=== PATIENT | male | born 1940 | race Caucasian/White ===

== ENCOUNTER 2018-05-27 12:03 | Outpatient (CLI) | payer MEDICARE, OTHER, SELFPAY | END 2018-05-27 12:23 | PROVIDERS: PCP Nurse Practitioner; Visit Provider Internal Medicine Interventional Cardiology | DX: I48.92 Unspecified atrial flutter (principal); I49.9 Cardiac arrhythmia, unspecified; G47.33 Obstructive sleep apnea (adult) (pediatric); I10 Essential (primary) hypertension | CPT/HCPCS: 99213 ==

== ENCOUNTER 2018-11-18 09:23 | Outpatient (CLI) | payer MEDICARE, OTHER, SELFPAY | END 2018-11-18 09:43 | PROVIDERS: PCP Nurse Practitioner; Visit Provider Internal Medicine Interventional Cardiology | DX: I48.0 Paroxysmal atrial fibrillation (principal); G47.30 Sleep apnea, unspecified; I10 Essential (primary) hypertension | CPT/HCPCS: 93005; 93010; 99213 ==

== ENCOUNTER 2018-12-19 12:22 | Outpatient (CLI) | payer MEDICARE, OTHER, SELFPAY ==
[2018-12-19 14:21] LABS: ALT 35 U/L (12-78); AST 32 U/L (15-37); Albumin 3.7 g/dL (3.4-5.0); Alkaline Phosphatase 49 U/L (46-116); Anion Gap 7.9 mmol/L (3-11); BUN 15 mg/dL (7-18); Bilirubin, Total 0.7 mg/dL (0.2-1.0); CO2 28.1 mmol/L (21.0-32.0); CREATININE 0.94 mg/dL (0.70-1.30); Calcium 8.9 mg/dL (8.5-10.1); Chloride 105 mmol/L (98-107); Glucose 89 mg/dL (70-100); Potassium 4.2 mmol/L (3.5-5.1); Sodium 141 mmol/L (136-145); Total Protein 6.4 g/dL (6.4-8.2)
== END 2018-12-19 12:42 ==
PROVIDERS: PCP Nurse Practitioner; Visit Provider Nurse Practitioner
DX: G47.33 Obstructive sleep apnea (adult) (pediatric) (principal); I10 Essential (primary) hypertension; I48.91 Unspecified atrial fibrillation; M19.90 Unspecified osteoarthritis, unspecified site
CPT/HCPCS: 36415; 80053

== ENCOUNTER → 2019-05-26 12:40 | Outpatient (BNVA) | payer MEDICARE, OTHER, SELFPAY | PROVIDERS: PCP Nurse Practitioner; Referring Provider Nurse Practitioner; Visit Provider Internal Medicine Cardiovascular Disease | DX: I48.0 Paroxysmal atrial fibrillation (principal); G47.33 Obstructive sleep apnea (adult) (pediatric); Z79.01 Long term (current) use of anticoagulants; I10 Essential (primary) hypertension | CPT/HCPCS: 99204; 99215 ==

== ENCOUNTER 2019-06-24 08:17 | Outpatient (CLI) | payer MEDICARE, OTHER, SELFPAY ==
[2019-06-24 08:54] LABS: HCT 43.3 % (40.0-50.0); HGB 14.6 g/dL (13.5-17.5); Mean Corp. HGB Concentration 33.7 g/dL (32.0-36.0); Mean Corpuscular Hemoglobin 31.7 pg (27.0-33.0); Mean Corpuscular Volume 94.1 fL (80-95); Mean Platelet Volume 10.3 fL (8.0-11.0); Platelet Count 146 x1000/uL (130-400); RBC Distribution Width 12.5 % (11.8-14.1); White Blood Cell Count 4.97 k/cumm (4.4-10.8)
[2019-06-24 09:42] LABS: ALT 27 U/L (16-63); AST 24 U/L (15-37); Albumin 3.8 g/dL (3.4-5.0); Alkaline Phosphatase 53 U/L (46-116); BUN 14 mg/dL (7-18); Bilirubin, Total 0.8 mg/dL (0.2-1.0); CREATININE 0.95 mg/dL (0.70-1.30); Calcium 8.8 mg/dL (8.5-10.1); Chloride 107 mmol/L (98-107); Cholesterol 117 mg/dL (50-200); Glucose 91 mg/dL (70-100); HDL Cholesterol 50 mg/dL (40-60); Potassium 4.1 mmol/L (3.5-5.1); Sodium 144 mmol/L (136-145); Total Protein 6.6 g/dL (6.4-8.2)
[2019-06-24 09:46] LABS: Triglyceride < 25 mg/dL (30-150)
[2019-06-24 10:13] LABS: LDL CHOLESTEROL 64 mg/dL (<100)
== END 2019-06-24 08:37 ==
PROVIDERS: PCP Nurse Practitioner; Visit Provider Nurse Practitioner
DX: I10 Essential (primary) hypertension (principal); I48.91 Unspecified atrial fibrillation; E78.9 Disorder of lipoprotein metabolism, unspecified; J30.9 Allergic rhinitis, unspecified
CPT/HCPCS: 36415; 80053; 80061; 83721; 85027

== ENCOUNTER → 2020-01-19 14:03 | Outpatient (BNVA) | payer MEDICARE, OTHER, SELFPAY | PROVIDERS: PCP Nurse Practitioner; Referring Provider Nurse Practitioner; Visit Provider Internal Medicine Cardiovascular Disease | DX: I48.91 Unspecified atrial fibrillation (principal); I48.0 Paroxysmal atrial fibrillation; G47.33 Obstructive sleep apnea (adult) (pediatric); I34.0 Nonrheumatic mitral (valve) insufficiency | CPT/HCPCS: 99214 ==

== ENCOUNTER 2020-02-11 01:54 | Outpatient (CLI) | payer MEDICARE, OTHER, SELFPAY ==
--- NOTE | 2020-02-11 07:45 | DI.US_ITS ---
APPROVED REPORT EXAM: Comprehensive 2D, Doppler, and color-flow Echocardiogram Patient Location: Out-Patient Cd Reactor Operator: Estrella Charles RDCS (AE) Indications: Murmur, Atrial Fibrillation Other Information Study Quality: Poor. Technically limited study due to body habitus. Conclusion Normal left ventricular wall thickness and chamber size. Estimated ejection fraction is 55%. There are no segmental wall motion abnormalities. Stage I diastolic dysfunction The left atrium is mildly dilated. The right atrium is top normal size The right ventricle is normal in size and systolic function The aortic valve is mildly sclerotic, not well visualized, with mild aortic regurgitation Mildly thickened mitral leaflets. There is mild mitral regurgitation The tricuspid valve is structurally normal. Trace tricuspid regurgitation The pulmonic valve is not well visualized Wall motion Left Ventricle The left ventricle is normal size. The left ventricular systolic function is normal. The left ventric ular ejection fraction is within the normal range. There is normal left ventricular wall thickness. T here is normal LV segmental wall motion. Transmitral Doppler flow pattern suggests impaired LV relaxa tion. LVEF is 55%. Right Ventricle The right ventricle is normal size. The right ventricular systolic function is normal. Atria Left atrium is mildly dilated. Right atrium is borderline dilated. Aortic Valve Aortic valve is not well visualized. There is mild sclerosis There is no aortic valvular stenosis. Tr jaimee mild aortic regurgitation. Mitral Valve Mitral leaflets mildly thickened No evidence of mitral valve stenosis. Mild mitral regurgitation. Tricuspid Valve The tricuspid valve is normal in structure. There is no tricuspid valve stenosis. Trace tricuspid reg urgitation. Pulmonic Valve Pulmonic valve is not well visualized. There is no pulmonic valvular stenosis. There is no pulmonic v alvular regurgitation. Great Vessels The aortic root is normal in size. Ascending aorta is not well visualized. Due to poor image quality, the IVC could not be assessed. 2D Dimensions IVSD d PLAX 0.87 cm M: 0.6-1.2 LV Vol A2C d MOD 139.5 mL LVPW d PLAX 0.87 cm M: 0.6 - 1.2 LV Vol A4C d MOD 107.6 mL LVID d PLAX 5.19 cm M: 4.2 - 5.8 LA vol/ BSA A2C s A-L 41.9 mL/m2 LVDs 3.65 cm M: 2.5 - 4.0 LA vol/ BSA A4C s A-L 39.8 mL/m2 Ao Root d 2.66 cm M: 3.1 - 3.7 LA Vol/ BSA Biplane s A-L 41.1 mL/m2 RA Area A4C 19.50 cm2 LA Area A4C s MOD 22.09 cm2 RA Vol/ BSA A4C s A-L 36.5 mL/m2 LA Area A2C s MOD 22.86 cm2 LV EF Teichholz 56.4 % LV EF A4C MOD 50.2 % LVEF (Hair's) 49.17 % M: 52 - 72 LV EF A2C MOD 53.9 % LV Volume 95.54 mL M: 62 - 150 LV EF Biplane MOD 49.2 % LV Volume Index 53.67 mL/m2 M: 34 - 74 SV 60.14 mL LV Vol Biplane MOD 122.3 mL SV Index 33.81 mL/m2 FS 29.65 % M-Mode TAPSE 3.39 cm (M/F) >1.7 LV Diastology MV E' medial 0.064 (>0.07 m/s) E/A Ratio 0.9 LV E/e MED 10.05 (<14) MV E Vmax 0.64 (0.4-1.3 m/s) MV E' lateral 0.065 (>0.1 m/s) MV A Vmax 0.70 (0.4-1.3 m/s) LV E/e LAT 9.85 (<14) MV E/A Ratio 0.89 MV E/E' medial 10.08 MV E/E' lateral 9.89 Aortic Valve LVOT Area 3.43 cm2 AoV Area Vmax 2.01 cm2 LVOT Vmax 0.98 m/s AoV Area/ BSA (Vmax) 1.13 cm2/m2 LVOT Mean Dave. 0.56 m/s OSMAR Mean Dave. 1.72 cm2 LVOT Peak Grad 3.8 mmHg OSMAR Mean Dave. Index 0.97 cm2/m2 LVOT Mean Grad 1.6 mmHg AR DT 3117 msec LVOT VTI 0.243 m AR PHT 904 msec LVOT Diam s 2.05 cm AoV Vmax 1.67 m/s Velocity Ratio 0.58 AoV Mean Dave. 1.13 m/s AoV Peak Grad 11.1 mmHg LVOT SV 83.39 mL AoV Mean Grad 5.7 mmHg AoV VTI 0.377 m AoV Area VTI 2.21 cm2 AoV Area/ BSA (VTI) 1.24 cm/m2 Mitral Valve MV DT 253 (160-240 msec) MR Vmax 5.87 m/s MV PHT 73 msec MR VTI 2.450 m MV Area PHT 3.00 cm2 MR Peak Grad 137.7 mmHg MR Mean Grad 90.1 mmHg MR PISA Radius 0.51 cm MR EROA 0.10 cm2 MR Aliasing Velocity 0.35 m/s MR PISA 1.62 cm2 Pulmonary Valve PV Vmax 0.91 (0.5-1.5 m/s) RVOT Peak Gr. 1.55 mmHg PV Peak Grad 3.3 mmHg RVOT Mean Gr. 1.00 mmHg PV Mean Grad 2.4 mmHg RVOT VTI 0.168 m PV VTI 0.218 m RVOT Vmax 0.62 m/s Tricuspid Valve TR Peak Grad 25.8 mmHg TR Vmax 2.54 m/s
== END 2020-02-11 02:14 ==
PROVIDERS: PCP Nurse Practitioner; Visit Provider Internal Medicine Cardiovascular Disease
DX: I48.91 Unspecified atrial fibrillation (principal); R01.1 Cardiac murmur, unspecified; I35.1 Nonrheumatic aortic (valve) insufficiency; I34.0 Nonrheumatic mitral (valve) insufficiency; I10 Essential (primary) hypertension
CPT/HCPCS: 93306

== ENCOUNTER → 2020-08-12 13:59 | Outpatient (BNVA) | payer MEDICARE, OTHER, SELFPAY | PROVIDERS: PCP Nurse Practitioner; Referring Provider Nurse Practitioner; Visit Provider Internal Medicine Cardiovascular Disease | DX: I48.91 Unspecified atrial fibrillation (principal); G47.33 Obstructive sleep apnea (adult) (pediatric); Z79.01 Long term (current) use of anticoagulants; I34.0 Nonrheumatic mitral (valve) insufficiency | CPT/HCPCS: 99213 ==

== ENCOUNTER → 2021-04-26 10:47 | Outpatient (BNVA) | payer MEDICARE, OTHER, SELFPAY | PROVIDERS: PCP Nurse Practitioner; Referring Provider Nurse Practitioner; Visit Provider Surgery | DX: L72.3 Sebaceous cyst (principal) | CPT/HCPCS: 99202; 99212 ==

== ENCOUNTER 2021-05-11 08:46 | Outpatient (REF) | payer MEDICARE, OTHER, SELFPAY ==
[2021-05-11 21:13] LABS: HCT 44.2 % (40.0-50.0); HGB 14.7 g/dL (13.5-17.5); MCHC 33.3 % (32.0-36.0); MCV 96.1 fL (80-95); MPV 11.5 fL (8.0-11.0); Platelet Count 136 10^3/uL (130-400); RDW-SD 42.2 fL; WBC 5.35 10^3/uL (4.4-10.8)
[2021-05-12 06:39] LABS: ALT 25 U/L (16-63); AST 23 U/L (15-37); Alkaline Phosphatase 45 U/L (46-116); BUN 13 mg/dL (7-18); Bilirubin, Total 1.2 mg/dL (0.2-1.0); Calculated LDL 65 mg/dL (<100); Chloride 106 mmol/L (98-107); Cholesterol 128 mg/dL (<200); Glucose 92 mg/dL (74-106); HDL Cholesterol 55 mg/dL (40-60); Potassium 4.2 mmol/L (3.5-5.1); Sodium 141 mmol/L (136-145); Total Protein 6.6 g/dL (6.4-8.2); Triglyceride 40 mg/dL (<150)
== END 2021-05-11 08:47 | disposition home or self-care (01) ==
LOC: LBO 08:46
PROVIDERS: PCP Nurse Practitioner; Visit Provider Nurse Practitioner
DX: E78.9 Disorder of lipoprotein metabolism, unspecified (principal); I10 Essential (primary) hypertension; J30.9 Allergic rhinitis, unspecified
CPT/HCPCS: 80053; 80061; 85027

== ENCOUNTER 2021-08-15 09:30 | Outpatient (CLI) | payer MEDICARE, OTHER, SELFPAY ==
--- NOTE | 2021-08-15 09:30 | RT.EKG_ITS ---
APPROVED REPORT Exam: Resting ECG Reason for Exam: afib Patient Location: O HR:48 bpm ECG Measurements Heart Rate 48 AXIS AL 218 P 49 QRSd 100 QRS 1 QT 446 T 62 QTc 399 Conclusion Sinus bradycardia...rate< 50 Ventricular premature complex...V complex w/ short R-R interval Abnormal R-wave progression, early transition...QRS area>0 in V2
== END 2021-08-15 09:31 | disposition home or self-care (01) ==
LOC: DI.CARD 09:45
PROVIDERS: PCP Nurse Practitioner; Referring Provider Nurse Practitioner; Visit Provider Internal Medicine Cardiovascular Disease
DX: I48.91 Unspecified atrial fibrillation (principal); R00.1 Bradycardia, unspecified; I49.3 Ventricular premature depolarization; R94.31 Abnormal electrocardiogram [ECG] [EKG]
CPT/HCPCS: 93010

== ENCOUNTER 2021-08-15 10:25 | Outpatient (CLI) | payer MEDICARE, OTHER, SELFPAY ==
--- NOTE | 2021-08-29 14:50 | CER_ITS ---
Date of service: 08/29/21 Time of Service: 14:56 Cardiac Event Recorder Referring Provider:: Audrey Oreilly Indications:: Paroxysmal atrial fibrillation Cardiac Event Note: This is a 14-day alarm security or surveillance monitor, ordered for paroxysmal atrial fibrillation Predominant rhythm was sinus with an average heart rate of 53. Minimum was 25, maximum sinus rate was 88 There were rare ventricular ectopic beats, rare couplets, 4 triplets Atrial fibrillation was present approximately 4.45% of the time. The majority of the atrial fibrillation was present with controlled rates. There were six 3 to 3.25-second pauses which appeared asymptomatic. These were generally present during sleeping hours Patient symptoms corresponded to sinus rhythm with atrial ectopic beats, but mostly to atrial fibrillation controlled rates
== END 2021-08-15 10:26 | disposition home or self-care (01) ==
PROVIDERS: PCP Nurse Practitioner; Visit Provider Internal Medicine Cardiovascular Disease
DX: I48.91 Unspecified atrial fibrillation; I49.8 Other specified cardiac arrhythmias; G47.33 Obstructive sleep apnea (adult) (pediatric); I10 Essential (primary) hypertension; Z79.01 Long term (current) use of anticoagulants
CPT/HCPCS: 93005; 93246; 99214

== ENCOUNTER 2021-08-29 14:56 | Outpatient (CLI) | payer MEDICARE, OTHER, SELFPAY | END 2021-08-29 14:57 | LOC: CARDO 08-31 12:38 | PROVIDERS: PCP Nurse Practitioner; Referring Provider Internal Medicine Cardiovascular Disease; Visit Provider Internal Medicine Cardiovascular Disease | DX: I48.0 Paroxysmal atrial fibrillation (principal) | CPT/HCPCS: 93248 ==

== ENCOUNTER → 2021-08-30 13:10 | Outpatient (BNVA) | payer MEDICARE, OTHER, SELFPAY | PROVIDERS: PCP Nurse Practitioner; Referring Provider Nurse Practitioner; Visit Provider Internal Medicine Cardiovascular Disease | DX: I48.91 Unspecified atrial fibrillation (principal); I49.8 Other specified cardiac arrhythmias; G47.33 Obstructive sleep apnea (adult) (pediatric); I10 Essential (primary) hypertension | CPT/HCPCS: 99214 ==

== ENCOUNTER → 2021-09-07 13:19 | Outpatient (BNVA) | payer MEDICARE, OTHER, SELFPAY | PROVIDERS: PCP Nurse Practitioner; Referring Provider Nurse Practitioner; Visit Provider Internal Medicine Cardiovascular Disease | DX: I48.91 Unspecified atrial fibrillation (principal); I48.92 Unspecified atrial flutter | CPT/HCPCS: 99214 ==

== ENCOUNTER 2022-05-02 03:11 | Outpatient (CLI) | payer MEDICARE, OTHER, SELFPAY ==
[2022-05-02 08:28] LABS: HCT 43.5 % (40.0-50.0); MCH 32.5 pg (27.0-33.0); MCHC 34.5 % (32.0-36.0); MCV 94 fL (80-95); MPV 10.2 fL (8.0-11.0); Platelet Count 146 10^3/uL (130-400); RBC 4.62 10^6/uL (4.36-5.78); RDW 11.9 % (11.8-14.1); RDW-SD 41.1 fL
[2022-05-02 08:47] LABS: ALT 24 U/L (16-63); AST 22 U/L (15-37); Albumin 3.9 g/dL (3.4-5.0); Alkaline Phosphatase 54 U/L (46-116); Anion Gap 6.1 mmol/L (3-11); BUN 14 mg/dL (7-18); Bilirubin, Total 1.2 mg/dL (0.2-1.0); CO2 28.9 mmol/L (21.0-32.0); Calcium 9.2 mg/dL (8.5-10.1); Calculated LDL 69 mg/dL (<100); Chloride 103 mmol/L (98-107); Cholesterol 130 mg/dL (<200); Estimated GFR 75.14 (mL/min/1.73m2); Glucose 91 mg/dL (74-106); HDL Cholesterol 54 mg/dL (40-60); Potassium 4.4 mmol/L (3.5-5.1); Sodium 138 mmol/L (136-145); Total Protein 7.1 g/dL (6.4-8.2); Triglyceride 36 mg/dL (<150)
== END 2022-05-02 03:12 | disposition home or self-care (01) ==
LOC: LBO 03:12
PROVIDERS: PCP Nurse Practitioner; Visit Provider Nurse Practitioner
DX: I10 Essential (primary) hypertension (principal); E78.89 Other lipoprotein metabolism disorders; I48.91 Unspecified atrial fibrillation; G47.33 Obstructive sleep apnea (adult) (pediatric)
CPT/HCPCS: 36415; 80053; 80061; 85027

== ENCOUNTER 2022-08-25 00:49 | Outpatient (CLI) | payer MEDICARE, OTHER, SELFPAY ==
--- NOTE | 2022-08-25 06:30 | DI.US_ITS ---
Exam(s) US SCROTUM EXAM: US SCROTUM CLINICAL HISTORY: scrotal swelling in the evenings for a year or two,chronic hydrocele,n43.3,. TECHNIQUE: Scrotal ultrasound performed using grayscale, color-flow and spectral Doppler analysis. COMPARISON: No exams were available for comparison FINDINGS: Right testicle: 3.7 x 2.4 x 2.4 cm Echogenicity: Normal. Contour: Smooth. Mass: None seen. Microlithiasis: None. Hydrocele: There is a small hydrocele. Variocele: None. Hernia: No peristalsing bowel loop identified. Epididymis: Small epididymal cysts are seen. The largest measures 0.3 cm. Left testicle: 3.3 x 2 x 3.4 cm Echogenicity: Normal. Contour: Smooth. Mass: None seen. Microlithiasis: None. Hydrocele: There is a small hydrocele. Variocele: None. Hernia: No peristalsing bowel loop identified. Epididymis: Cluster of epididymal head cysts measuring in aggregate 0.4 cm maximally. DOPPLER: Color: Symmetric and uniform, no hyperemia. Duplex: Bilateral testicular arterial waveforms visualized. IMPRESSION: 1. No evidence of an intra testicular mass. 2. Small bilateral hydroceles. DATA REPOSITORY:
== END 2022-08-25 01:09 ==
LOC: DI 00:49
PROVIDERS: PCP Nurse Practitioner; Visit Provider Nurse Practitioner
DX: N43.3 Hydrocele, unspecified (principal); N50.89 Other specified disorders of the male genital organs
CPT/HCPCS: 76870

== ENCOUNTER → 2022-09-22 10:43 | Outpatient (BNVA) | payer MEDICARE, OTHER, SELFPAY | PROVIDERS: PCP Nurse Practitioner; Referring Provider Nurse Practitioner; Visit Provider Internal Medicine Cardiovascular Disease | DX: I48.91 Unspecified atrial fibrillation (principal); I10 Essential (primary) hypertension | CPT/HCPCS: 99214; 99213 ==

== ENCOUNTER → 2022-11-23 08:30 | Outpatient (BNVA) | payer MEDICARE, OTHER, SELFPAY | PROVIDERS: PCP Nurse Practitioner; Referring Provider Nurse Practitioner; Visit Provider Nurse Practitioner Gerontology | DX: N43.3 Hydrocele, unspecified (principal); N50.3 Cyst of epididymis | CPT/HCPCS: 99214 ==

== ENCOUNTER 2023-03-19 03:54 | Outpatient (CLI) | payer MEDICARE, OTHER, SELFPAY ==
[2023-03-19 08:08] LABS: HCT 41.6 % (40.0-50.0); HGB 14.4 g/dL (13.5-17.5); MCH 32.7 pg (27.0-33.0); MCHC 34.6 % (32.0-36.0); MCV 94 fL (80-95); MPV 9.5 fL (8.0-11.0); Platelet Count 139 10^3/uL (130-400); RBC 4.41 10^6/uL (4.36-5.78); RDW 12.1 % (11.8-14.1); RDW-SD 42.2 fL; WBC 5.46 10^3/uL (4.4-10.8)
[2023-03-19 08:26] LABS: ALT 18 U/L (16-63); AST 24 U/L (15-37); Albumin 3.7 g/dL (3.4-5.0); Alkaline Phosphatase 44 U/L (46-116); Anion Gap 7.7 mmol/L (3-11); BUN 13 mg/dL (7-18); Bilirubin, Total 1.2 mg/dL (0.2-1.0); CO2 27.3 mmol/L (21.0-32.0); CREATININE 1.1 mg/dL (0.70-1.30); Calcium 8.7 mg/dL (8.5-10.1); Calculated LDL 55 mg/dL (<100); Chloride 104 mmol/L (98-107); Cholesterol 118 mg/dL (<200); Estimated GFR 66.61 (mL/min/1.73m2); Glucose 89 mg/dL (74-106); HDL Cholesterol 57 mg/dL (40-60); Potassium 3.9 mmol/L (3.5-5.1); Sodium 139 mmol/L (136-145); Total Protein 6.7 g/dL (6.4-8.2); Triglyceride 31 mg/dL (<150)
== END 2023-03-19 03:55 | disposition home or self-care (01) ==
LOC: LBO 03:54
PROVIDERS: PCP Nurse Practitioner; Visit Provider Nurse Practitioner
DX: I10 Essential (primary) hypertension (principal); E78.89 Other lipoprotein metabolism disorders; I48.91 Unspecified atrial fibrillation
CPT/HCPCS: 36415; 80053; 80061; 85027

== ENCOUNTER → 2023-05-24 08:03 | Outpatient (BNVA) | payer MEDICARE, OTHER, SELFPAY | PROVIDERS: PCP Nurse Practitioner; Referring Provider Nurse Practitioner; Visit Provider Nurse Practitioner Gerontology | DX: N43.3 Hydrocele, unspecified (principal) | CPT/HCPCS: 99213 ==

== ENCOUNTER → 2023-09-21 10:32 | Outpatient (BNVA) | payer MEDICARE, OTHER, SELFPAY | PROVIDERS: PCP Nurse Practitioner; Visit Provider Internal Medicine Cardiovascular Disease | DX: I48.91 Unspecified atrial fibrillation (principal); I10 Essential (primary) hypertension | CPT/HCPCS: 99213 ==

== ENCOUNTER 2024-01-01 08:46 | Outpatient (REF) | payer MEDICARE, OTHER, SELFPAY ==
--- NOTE | 2024-01-01 07:45 | SKI_PTH ---
PATIENT: Rafal Mercado LOC: [facility] U#:[id number] AGE/SX: 83/M ROOM: RE01/01/[address]: Alexey Hernandez MD : 1940 BED: DIS: 01/01/2024 SPEC #: [id number] RECD: 01/01/24 16:38 STATUS: MARCELO RELizzy #: [id number] KEEHSA: 01/01/24 07:[address]: Alexey Hernandez DEPT: Surgical Specimen RECD BY: Kesha Srinivasan ENTERED: 01/01/24 16:40 SP TYPE: JANNIE OROZCO DR: Silvana Nagel APRN Tissues: 1 - SKIN BIOPSY(SHAVE/PUNCH) Procedures: SKIN LEVEL 4 Comments: [id number]
== END 2024-01-01 08:47 | disposition home or self-care (01) ==
LOC: LBN 08:46
PROVIDERS: PCP Nurse Practitioner; Visit Provider Otolaryngology
DX: C44.92 Squamous cell carcinoma of skin, unspecified
CPT/HCPCS: 88305

== ENCOUNTER 2024-05-05 03:09 | Outpatient (CLI) | payer MEDICARE, OTHER, SELFPAY ==
[2024-05-05 07:55] LABS: Abs Immature Grans 0.02 10^3/uL (0.0-0.06); Absolute Basophil Count 0.04 10^3/uL (0.0-0.2); Absolute Eosinophil Count 0.34 10^3/uL (0.0-0.7); Absolute Lymphocyte Count 1.31 10^3/uL (1.2-3.4); Absolute Monocyte Count 0.39 10^3/uL (0.1-0.8); Basophils % 0.8 %; Eosinophils % 6.5 %; HCT 42.2 % (40.0-50.0); HGB 14.5 g/dL (13.5-17.5); Immature Grans % 0.4 %; Lymphocytes % 25.2 %; MCH 32.2 pg (27.0-33.0); MCHC 34.4 % (32.0-36.0); MCV 94 fL (80-95); MPV 9.4 fL (8.0-11.0); Monocytes % 7.5 %; Neutrophils % 59.6 %; Platelet Count 147 10^3/uL (130-400); RBC 4.51 10^6/uL (4.36-5.78); RDW 12.3 % (11.8-14.1); RDW-SD 42.7 fL
[2024-05-05 08:43] LABS: ALT 21 U/L (16-63); AST 24 U/L (15-37); Albumin 4.1 g/dL (3.4-5.0); Alkaline Phosphatase 55 U/L (46-116); Anion Gap 7.8 mmol/L (3-11); BUN 13 mg/dL (7-18); Bilirubin, Total 1.13 mg/dL (0.2-1.0); CO2 29.2 mmol/L (21.0-32.0); Calcium 9.8 mg/dL (8.5-10.1); Calculated LDL 67 mg/dL (<100); Chloride 103 mmol/L (98-107); Cholesterol 132 mg/dL (<200); Estimated GFR 74.21 (mL/min/1.73m2); Glucose 98 mg/dL (74-106); HDL Cholesterol 58 mg/dL (40-60); Potassium 4.3 mmol/L (3.5-5.1); Sodium 140 mmol/L (136-145); Total Protein 7.3 g/dL (6.4-8.2); Triglyceride 37 mg/dL (<150)
== END 2024-05-05 03:10 | disposition home or self-care (01) ==
LOC: LBO 03:09
PROVIDERS: PCP Nurse Practitioner; Referring Provider Nurse Practitioner; Visit Provider Nurse Practitioner
DX: E78.9 Disorder of lipoprotein metabolism, unspecified (principal); I10 Essential (primary) hypertension; I48.91 Unspecified atrial fibrillation
CPT/HCPCS: 36415; 80053; 80061; 85025

== ENCOUNTER 2024-09-19 07:45 | Outpatient (CLI) | payer MEDICARE, OTHER, SELFPAY ==
--- NOTE | 2024-09-19 07:45 | RT.EKG_ITS ---
APPROVED REPORT Exam: Resting ECG Reason for Exam: Cardiac evaluation Patient Location: O HR:97 bpm ECG Measurements Heart Rate 97 AXIS SD [id number] P [id number] QRSd 88 QRS -14 QT 388 T 50 QTc 493 Conclusion Atrial fibrillation early transition...
== END 2024-09-19 07:46 | disposition home or self-care (01) ==
LOC: DI.CARD 07:47
PROVIDERS: PCP Nurse Practitioner; Visit Provider Internal Medicine Cardiovascular Disease
DX: I49.8 Other specified cardiac arrhythmias; I10 Essential (primary) hypertension
CPT/HCPCS: 93010

== ENCOUNTER → 2024-09-19 10:50 | Outpatient (BNVA) | payer MEDICARE, OTHER, SELFPAY | PROVIDERS: PCP Nurse Practitioner; Visit Provider Internal Medicine Cardiovascular Disease | DX: I48.91 Unspecified atrial fibrillation (principal); I49.8 Other specified cardiac arrhythmias; I10 Essential (primary) hypertension | CPT/HCPCS: 93005; 99213 ==

== ENCOUNTER 2025-05-13 08:10 | Outpatient (CLI) | payer MEDICARE, OTHER, SELFPAY ==
[2025-05-13 08:37] LABS: Abs Immature Grans 0.01 10^3/uL (0.0-0.06); HCT 39.9 % (40.0-50.0); HGB 13.6 g/dL (13.5-17.5); Immature Grans % 0.2 %; MCH 32.2 pg (27.0-33.0); MCHC 34.1 % (32.0-36.0); MCV 95 fL (80-95); MPV 9.3 fL (8.0-11.0); Platelet Count 131 10^3/uL (130-400); RBC 4.22 10^6/uL (4.36-5.78); RDW 12.0 % (11.8-14.1); RDW-SD 41.9 fL; WBC 5.10 10^3/uL (4.4-10.8)
[2025-05-13 08:39] LABS: Glucose Negative (Negative)
[2025-05-13 09:32] LABS: Hemoglobin A1C 5.2 % (<5.7)
[2025-05-13 09:45] LABS: ALT 22 U/L (16-63); AST 23 U/L (15-37); Albumin 3.7 g/dL (3.4-5.0); Alkaline Phosphatase 45 U/L (46-116); Anion Gap 9.8 mmol/L (3-11); BUN 17 mg/dL (7-18); Bilirubin, Total 0.9 mg/dL (0.2-1.0); CO2 25.2 mmol/L (21.0-32.0); Calcium 9.0 mg/dL (8.5-10.1); Calculated LDL 64 mg/dL (<100); Chloride 104 mmol/L (98-107); Cholesterol 118 mg/dL (<200); Estimated GFR 83.70 (mL/min/1.73m2); Glucose 87 mg/dL (74-106); HDL Cholesterol 46 mg/dL (>or=40); Potassium 4.2 mmol/L (3.5-5.1); Sodium 139 mmol/L (136-145); TSH 1.50 uIU/mL (0.36-3.74); Total Protein 6.5 g/dL (6.4-8.2); Triglyceride 40 mg/dL (<150)
[2025-05-13 19:07] LABS: PSA, Screening <0.1 ng/mL (<=6.5)
== END 2025-05-13 08:11 | disposition home or self-care (01) ==
LOC: LBO 08:11
PROVIDERS: PCP Nurse Practitioner; Visit Provider Family Medicine
DX: R53.83 Other fatigue (principal); Z13.9 Encounter for screening, unspecified; Z12.5 Encounter for screening for malignant neoplasm of prostate
CPT/HCPCS: 36415; 80053; 80061; 84153; 81003; 83036; 84443; 85025